=== PATIENT | male | born 1970 | race African-American/Black ===

== ENCOUNTER 2016-04-06 02:02 | Emergency (ER) | payer SELFPAY ==
[~2016-04-06] VITALS: Ht 185.4 cm; Wt 127.0 kg
[2016-04-06 02:50] VITALS: BP 158/97
== END 2016-04-06 02:50 | disposition home or self-care (01) ==
LOC: EME 02:02
DX: Z20.2 Contact with and (suspected) exposure to infections with a predominantly sexual mode of transmission (principal)
CPT/HCPCS: 81003; 99281; 99283